=== PATIENT | male | born 1990 | race Caucasian/White ===

== ENCOUNTER 2018-09-02 00:55 | Emergency (ER) | payer BC ==
[~2018-09-02] VITALS: Ht 177.8 cm; Wt 74.8 kg
[2018-09-02] MEDS ORDERED: PANTOPRAZOLE 40 MG 10ML VIAL IV STA (01:16)
[2018-09-02] MEDS ORDERED: MORPHINE SULFATE 2 MG/ML SYR IV STA (01:16)
[2018-09-02] MEDS ORDERED: ONDANSETRON HCL INJ 2 MG/ML VIAL IV STA (01:16)
[2018-09-02] MEDS ORDERED: CIPROFLOXACIN500 MG PO (01:22)
[2018-09-02] MEDS ORDERED: SUCRALFATE1 GM PO (01:22)
[2018-09-02] MEDS ORDERED: ONDANSETRON HCL4 MG PO (01:22)
[2018-09-02] MEDS ORDERED: PROMETHAZINE HC25 M1 PO (01:22)
[2018-09-02] MEDS ORDERED: RANITIDINE HCL150 MG PO (01:22)
[2018-09-02] MEDS ORDERED: NEXIUM40 MG PO (01:22)
[2018-09-02] MEDS ORDERED: HYOSCYAMINE0.125 M1 PO (01:22)
[2018-09-02 01:28] LABS: BASOPHILS % 0.3 % (0.0-1.0); EOSINOPHILS # (AUTO) 0.1 (0.0-0.4); EOSINOPHILS % 1.4 % (0.0-6.0); HEMATOCRIT 45.3 % (38.2-49.6); HEMOGLOBIN 15.8 g/dL (14.0-18.0); LYMPHOCYTES # (AUTO) 1.7 (1.0-3.2); LYMPHOCYTES % 29.8 % (18.0-39.1); MEAN CORPUSCULAR HEMOGLOBIN 30.1 pg (28-32); MEAN CORPUSCULAR HGB CONC 34.9 g/dL (31-35); MEAN CORPUSCULAR VOLUME 86.3 fL (81-99); MONOCYTES # (AUTO) 0.4 (0.2-0.8); MONOCYTES % 6.9 % (4.4-11.3); NEUTROPHILS # (AUTO) 3.6 (2.1-6.9); NEUTROPHILS % 61.6 % (38.7-80.0); PLATELET COUNT 316 x10e3/uL (140-360); RED BLOOD COUNT 5.25 x10e6/uL (4.3-5.7); RED CELL DISTRIBUTION WIDTH 11.7 % (11.7-14.4)
[2018-09-02] MEDS ORDERED: SODIUM CHLORIDE 0.9% 1000ML 1,000 ML IV SCH (01:30)
[2018-09-02 01:32] LABS: CLARITY,URINE CLEAR (CLEAR); COLOR,URINE YELLOW (YELLOW)
[2018-09-02 01:33] LABS: BILIRUBIN,URINE NEGATIVE (NEGATIVE); KETONES,URINE NEGATIVE (NEGATIVE); LEUKOCYTE ESTERASE ,URINE NEGATIVE (NEGATIVE); NITRITE,URINE NEGATIVE (NEGATIVE); PROTEIN,URINE DIPSTICK NEGATIVE (NEGATIVE); RBC,URINE 0-5 /HPF (0-5); URINE UROBILINOGEN 0.2 mg/dL (0.2 - 1); WBC,URINE (MAN) 0-5 /HPF (0-5)
[2018-09-02 01:51] LABS: ALANINE AMINOTRANSFERASE 11 IU/L (0-55); ALBUMIN 4.1 g/dL (3.5-5.0); ALBUMIN/GLOBULIN RATIO 1.4 (0.8-2.0); ALKALINE PHOSPHATASE 68 IU/L (40-150); AMYLASE 42 U/L (25-125); ANION GAP 11.7 mmol/L (8-16); BLOOD UREA NITROGEN 11 mg/dL (7-26); BUN/CREATININE RATIO 9 (6-25); CALCIUM 9.3 mg/dL (8.4-10.2); CARBON DIOXIDE 27 mmol/L (22-29); CHLORIDE 107 mmol/L (98-107); CREATININE, SERUM 1.28 mg/dL (0.72-1.25); EST GLOMERULAR FILTRATION RATE > 60 ML/MIN (60-); GLUCOSE 97 mg/dL (74-118); LIPASE 26 U/L (8-78); POTASSIUM 3.7 mmol/L (3.5-5.1); SODIUM 142 mmol/L (136-145)
--- NOTE | 2018-09-02 02:52 | Diagnostic Imaging Report ---
EXAM: US GALLBLADDER DATE: 09/02/2018 12:00 AM INDICATION: Right upper quadrant pain, COMPARISON: None TECHNIQUE: Transverse and longitudinal cabrales scale and color doppler sonographic images of the right upper abdomen were obtained. FINDINGS: Evaluation is degraded due to excessive overlying bowel gas. LIVER 14.2 cm in the right midclavicular line. Normal echogenicity, normal contour. Hyperechoic gently lobular lesion in the right liver measures 1.1 x 1.1 x 1.1 cm. GALLBLADDER Slightly contracted and obscured by overlying bowel gas. No stones, sludge, wall-thickening or pericholecystic fluid. Negative sonographic Wolff's sign. BILE DUCTS No intra nor extra-hepatic biliary dilation. Common bile duct measures 0.5 cm PANCREAS: Obscured by overlying bowel gas pattern. Visualized portions are normal. RIGHT KIDNEY: 9.9 cm Echogenicity: Normal Collecting System: No hydronephrosis Stones: None Cyst/Mass: None VESSELS: Aorta: Poorly visualized due to overlying bowel gas Inferior Vena Cava: Poorly visualized due to overlying bowel gas Main Portal Vein: 0.8 cm, normal size with hepatopetal flow. FREE FLUID: None IMPRESSION: 1. No cholelithiasis or evidence of acute cholecystitis. 2. A1.1 cm hyperechoic right liver lesion, statistically benign such as a hemangioma in the absence of known liver disease. Consider nonemergent short-term follow-up MRI for characterization if clinically warranted. Signed by: Dr Lisbet Hernandez MD on 09/02/2018 2:48 AM
[2018-09-07] MEDS ORDERED: ZOFRAN ODT4 MG PO (13:08)
[2018-09-07] MEDS ORDERED: PANTOPRAZOLE SO40 MG PO (13:08)
[2018-09-07] MEDS ORDERED: LEVSIN0.125 MG PO (13:08)
[2018-10-09] MEDS ORDERED: NEXIUM40 MG (11:16)
== END 2018-09-02 03:45 | disposition home or self-care (01) ==
LOC: ER 00:55
DX: R10.11 Right upper quadrant pain (principal); R10.13 Epigastric pain; K29.50 Unspecified chronic gastritis without bleeding
CPT/HCPCS: 36415; 76705; 80053; 81001; 82150; 83605; 83690; 85025; 99284; J2270; J2405; J7030

== ENCOUNTER → 2018-09-10 | Day surgery (SDC) | payer BC ==
[~2018-09-10] MED LIST: CIPROFLOXACIN500 MG PO; FENTANYL CITRATE/PF 100MCG/2 ML INJ ONE; HYOSCYAMINE0.125 M1 PO; LEVSIN0.125 MG PO; LIDOCAINE HCL 2% LOCAL INJ 5 ML SDV VIAL INJ ONE; MIDAZOLAM HCL 2 MG/2 ML VIAL ONE; NEXIUM40 MG; NEXIUM40 MG PO; ONDANSETRON HCL4 MG PO; PANTOPRAZOLE SO40 MG PO; PROMETHAZINE HC25 M1 PO; PROPOFOL IV EMULSION 10 MG/ML 50 ML VIAL ONE; RANITIDINE HCL150 MG PO; SUCRALFATE1 GM PO; ZOFRAN ODT4 MG PO
--- OUTSIDE RECORDS SUMMARY | 2018-09-10 12:39 | XMS REPORT ---
Author Author [facility] Address Unknown Phone Unavailable Care Team Providers Care Sanitation Associate Name Role Phone Johan RUTLEDGE Unavailable Unavailable Problems This patient has no known problems. Allergies, Adverse Reactions, Alerts This patient has no known allergies or adverse reactions. Medications This patient has no known medications. Results Test Description Test Time Test Comments Text Results Atomic Results Result Comments US GALLBLADDER 2018-09-02 02:45:00 [place] [address] Patient Name: SWAPNA DUKE MR #: [id number] : 1990 Age/Sex: 28/M Req #: [id number] Adm Physician: Ordered by: RADHA RUTLEDGE MD Report #: [id number] Location: ER Room/Bed: Procedure: [id number] US/US GALLBLADDER Exam Date: 09/02/18 Exam Time: 0200 REPORT STATUS: Signed EXAM: US GALLBLADDER DATE: 09/02/2018 12:00 AM IND ICATION: Right upper quadrant pain, COMPARISON: None TECHNIQUE: Transverse and longitudinal cabrales scale and color doppler sonographic images of the right upper abdomen were obtained. FINDINGS: Evaluation is degraded due to excessive overlying bowel gas. LIVER 14.2 cm in the right midclavicular line. Normal echogenicity, normal contour. Hyperechoic gently lobular lesion in the right liver measures 1.1 x 1.1 x 1.1 cm. GALLBLADDER Slightly contracted and obscured by overlying bowel gas. No stones, sludge, wall-thickening or pericholecystic fluid. Negative son ographic Wolff's sign. BILE DUCTS No intra nor extra-hepatic biliary dilation. Common bile duct measures 0.5 cm PANCREAS: Obscured by overlying bowel gas pattern. Visualized portions are normal. RIGHT KIDNEY: 9.9 cm Echogenicity: Normal Collecting System: No hydronephrosis Stones: None Cyst/Mass: None VESSELS: Aorta: Poorly visualized due to overlying bowel gas Inferior Vena Cava: Poorly visualized due to overlying bowel gas Main Portal Vein: 0.8 cm, normal size with hepatopetal flow. FREE FLUID: None IMPRESSION: 1. No cholelithiasis or evidence of acute cholecystitis. 2. A1.1 cm hyperechoic right liver lesion, statistically benign such as a hemangioma in the absence of known liver disease. Consider nonemergent short-term follow-up MRI for characterization if clinically warranted. Signed by: Dr Yrn Hernandez MD on 09/02/2018 2:48 AM Dictated By: YRN HERNANDEZ MD 7 Transcribed By: POLLO on 09/02/18247 COPY TO: RADHA RUTLEDGE MD
[2018-09-10 14:58] LABS: WBC,FECAL (FECAL LACTOFERRIN) NEGATIVE (NEGATIVE)
--- NOTE | 2018-09-10 14:58 | Operative Report ---
DATE OF PROCEDURE: September 10, 2018 REFERRING PHYSICIAN: Dr. Fei Wilcox. PROCEDURES PERFORMED: 1. Esophagogastroduodenoscopy with biopsies. 2. Colonoscopy with biopsies. INDICATIONS FOR ESOPHAGOGASTRODUODENOSCOPY: Epigastric pain, nausea and vomiting. INDICATIONS FOR COLONOSCOPY: Diarrhea and weight loss. History of bright red blood per rectum. MEDICATION: Patient was done under MAC. Please see anesthesiologist's note. PROCEDURE: With the patient in the left lateral decubitus position, the flexible fiberoptic Olympus gastroscope was introduced into the esophagus under direct visualization without any difficulty. There was some patchy erythema noted in the distal esophagus. There was a minute nodule noted at the GE junction, and that was biopsied. The scope was then advanced with ease into the stomach, traversing a small hiatal hernia. Mucosa overlying the antrum and the body revealed some patchy erythema and mild to moderate edema, and biopsies were obtained and sent to stain for H. pylori. Pylorus appeared to be of normal contour and shape, was intubated with ease, and the scope was advanced all the way to the 2nd portion of the duodenum. Biopsies were obtained from the proximal 2nd portion to rule out sprue. Mucosa overlying the duodenal bulb appeared to be within normal limits. The scope was then withdrawn back into the stomach and retroflexed, and the mucosa overlying the fundus and the cardia appeared to be within normal limits. The scope was then straightened out. It was subsequently withdrawn. Patient tolerated the procedure well. IMPRESSION: 1. Distal esophagitis. 2. Minute nodule gastroesophageal junction biopsied. 3. Small sliding hiatal hernia. 4. Gastritis biopsied. Biopsies sent to stain for H. pylori. 5. Rule out sprue. PLAN: Follow up histology. Initiate Protonix 40 mg 1 p.o. q.a.m. a.c. Patient was then turned around and after adequate lubrication of the anal canal, a flexible fiberoptic Olympus colonoscope was inserted into the rectum with ease and advanced all the way to the cecum. The ileocecal valve was intubated, and the scope was advanced into the terminal ileum. Biopsies were obtained. The scope was then withdrawn back into the colon, and it then withdrawn slowly. The mucosa overlying the cecum, ascending and the transverse grossly appeared to be within normal limits. Mild patchy inflammatory changes were noted in the left colon as well as the rectum, and random biopsies were obtained. The scope was then retroflexed into the distal rectum and small internal hemorrhoids were noted, none of which was actively bleeding. The scope was then straightened out. It was subsequently withdrawn after securing an adequate stool specimen that was sent for the appropriate stool studies. Patient tolerated procedure well. IMPRESSION: 1. Mild patchy left-sided colitis. 2. Proctitis, mild. Biopsies obtained. 3. Internal hemorrhoids, none actively bleeding. PLAN: Follow up histology. Follow up stool studies. Initiate VSL#3 one p.o. daily and Bentyl 10 mg 1 p.o. t.i.d. Job#: [id number] EV cc:FEI WILCOX MD
[2018-09-10 15:05] VITALS: BP 104/62
[2018-09-11 09:33] LABS: C DIFFICILE TOXIN A&B AMP PROB NEGATIVE (NEGATIVE)
== END | disposition home or self-care (01) ==
LOC: OR 12:37
PROVIDERS: ATTEND Internal Medicine Gastroenterology
DX: K29.70 Gastritis, unspecified, without bleeding (principal); K20.9 Esophagitis, unspecified; K22.8 Other specified diseases of esophagus; K44.9 Diaphragmatic hernia without obstruction or gangrene; K51.50 Left sided colitis without complications; K62.89 Other specified diseases of anus and rectum; K64.8 Other hemorrhoids; Z88.0 Allergy status to penicillin
CPT/HCPCS: 43239; 45380; 83630; 83993; 87045; 87177; 87328; 87493; J2001; J2250; 45378

== ENCOUNTER → 2018-10-12 | Day surgery (SDC) | payer BC ==
[2018-10-09 11:21] LABS: BASOPHILS % 0.6 % (0.0-1.0); EOSINOPHILS # (AUTO) 0.2 (0.0-0.4); EOSINOPHILS % 3.3 % (0.0-6.0); HEMATOCRIT 42.2 % (38.2-49.6); HEMOGLOBIN 14.4 g/dL (14.0-18.0); LYMPHOCYTES # (AUTO) 1.5 (1.0-3.2); LYMPHOCYTES % 31.1 % (18.0-39.1); MEAN CORPUSCULAR HEMOGLOBIN 29.8 pg (28-32); MEAN CORPUSCULAR HGB CONC 34.1 g/dL (31-35); MEAN CORPUSCULAR VOLUME 87.4 fL (81-99); MONOCYTES # (AUTO) 0.4 (0.2-0.8); MONOCYTES % 8.7 % (4.4-11.3); NEUTROPHILS # (AUTO) 2.7 (2.1-6.9); NEUTROPHILS % 56.1 % (38.7-80.0); PLATELET COUNT 283 x10e3/uL (140-360); RED BLOOD COUNT 4.83 x10e6/uL (4.3-5.7); RED CELL DISTRIBUTION WIDTH 11.9 % (11.7-14.4)
[2018-10-09 11:24] LABS: BILIRUBIN,URINE NEGATIVE (NEGATIVE); CLARITY,URINE CLEAR (CLEAR); COLOR,URINE YELLOW (YELLOW); KETONES,URINE NEGATIVE (NEGATIVE); LEUKOCYTE ESTERASE ,URINE NEGATIVE (NEGATIVE); NITRITE,URINE NEGATIVE (NEGATIVE); PROTEIN,URINE DIPSTICK NEGATIVE (NEGATIVE); URINE UROBILINOGEN 0.2 mg/dL (0.2 - 1)
[2018-10-09 11:48] LABS: ALANINE AMINOTRANSFERASE 12 IU/L (0-55); ALBUMIN/GLOBULIN RATIO 1.3 (0.8-2.0); ALKALINE PHOSPHATASE 64 IU/L (40-150); ANION GAP 13.1 mmol/L (8-16); BLOOD UREA NITROGEN 12 mg/dL (7-26); BUN/CREATININE RATIO 10 (6-25); CALCIUM 9.4 mg/dL (8.4-10.2); CARBON DIOXIDE 27 mmol/L (22-29); CHLORIDE 105 mmol/L (98-107); CREATININE, SERUM 1.23 mg/dL (0.72-1.25); EST GLOMERULAR FILTRATION RATE > 60 ML/MIN (60-); GLUCOSE 86 mg/dL (74-118); POTASSIUM 4.1 mmol/L (3.5-5.1); SODIUM 141 mmol/L (136-145)
[~2018-10-12] MED LIST changes: +BUPIVACAINE 0.25%/EPI 30ML SDV INJ ONE; +DEXAMETHASONE SOD PHOS INJ 4 MG/ML VIAL ONE; +GLYCOPYRROLATE INJ 1MG/ 5 ML SYR ONE; +HYDROMORPHONE 2MG/ML 2 MG/ML ML ONE; +KETOROLAC TROMETHAMINE 30 MG/ML VIAL ONE; +MORPHINE SULFATE INJ 4 MG/ML INJ ONE; +NEOSTIGMINE 5 MG/5ML SYR ONE; +ONDANSETRON HCL INJ 2 MG/ML VIAL ONE; +PROPOFOL IV EMULSION 10 MG/ML 20 ML VIAL ONE; -PROPOFOL IV EMULSION 10 MG/ML 50 ML VIAL ONE; +ROCURONIUM BROMIDE 10 MG/ML 5ML VIAL ONE; +SEVOFLURANE INHAL SOLN 250 ML PEN BTL ONE
--- NOTE | 2018-10-12 14:44 | Operative Report ---
DATE OF PROCEDURE: October 12, 2018 PREOPERATIVE DIAGNOSIS: Biliary dyskinesia. POSTOPERATIVE DIAGNOSIS: Biliary dyskinesia. OPERATION PERFORMED: Laparoscopic cholecystectomy. ASSISTANTS: Dr. Zafar Trujillo and FABY Sun. ANESTHESIA: General. COMPLICATIONS: None. ESTIMATED BLOOD LOSS: Minimal. DESCRIPTION OF PROCEDURE: With the patient lying in bed in the supine position under good general endotracheal anesthesia, the abdomen was prepped with Betadine solution and draped in the usual manner. A Veress needle was introduced into the umbilicus and pneumoperitoneum was established without any difficulty. An 11 mm trocar was placed into the umbilicus and a 10 mm video laparoscope was placed into the intraabdominal cavity. Under direct vision, three 5 mm trocars were placed in right subcostal region. Video laparoscopy at this point revealed a liver that appeared to be normal. There seemed to be a small cystic lesion in the right lobe. The gallbladder was totally covered up with adhesions. All of the adhesions to the gallbladder were then slowly and carefully taken down. The peritoneum overlying the neck of the gallbladder was then opened and the cystic duct was identified. The cystic duct was followed to its junction with the common duct. Cystic duct was then circumferentially dissected away from the common duct, doubly clipped and divided. The cystic artery was similarly doubly clipped and divided. The gallbladder was then slowly and carefully taken off the liver bed using the cautery scissors and perfect hemostasis was ascertained. The gallbladder was grasped through the umbilical port and removed without any difficulty. Video laparoscopy was then again carried out. The liver bed was found to perfectly dry. All of the excess fluid was aspirated. The pneumoperitoneum was evacuated and all the trocars were removed under direct vision. The midline fascia at the umbilicus was then closed with a [id number]-qo-ectiv of 0 Vicryl. All layers were infiltrated on the way out with solution 1/4 percent Marcaine. Subcutaneous tissue was approximated with 3-0 Vicryl and the skin was closed subcuticular 5-0 Vicryl. Benzoin, Steri-Strips and Band-Aids were applied. The sponge, lap and needle count was correct. The patient tolerated the procedure well and returned to the recovery room in stable condition. Job#: [id number]
[2018-10-12 15:45] VITALS: BP 117/85
== END | disposition home or self-care (01) ==
LOC: OR 09:12
PROVIDERS: ATTEND Surgery
DX: K81.1 Chronic cholecystitis (principal); K82.8 Other specified diseases of gallbladder; K21.9 Gastro-esophageal reflux disease without esophagitis; F41.9 Anxiety disorder, unspecified; Z01.812 Encounter for preprocedural laboratory examination; Z88.0 Allergy status to penicillin
CPT/HCPCS: 36415; 47562; 80053; 81003; 85025; 88304; C1766; J1100; J1170; J1885; J2001; J2250; J2270; J2405; J2704; J3490

== ENCOUNTER → 2019-12-13 | Outpatient (CLI) | payer BC, OTHER ==
[~2019-12-13] MED LIST changes: -BUPIVACAINE 0.25%/EPI 30ML SDV INJ ONE; -DEXAMETHASONE SOD PHOS INJ 4 MG/ML VIAL ONE; -FENTANYL CITRATE/PF 100MCG/2 ML INJ ONE; +GADOBENATE DIMEGLUMINE 1 ML IV ONE; -GLYCOPYRROLATE INJ 1MG/ 5 ML SYR ONE; -HYDROMORPHONE 2MG/ML 2 MG/ML ML ONE; +IOPAMIDOL 300 MG/ML 15ML VIAL IT ONE; -KETOROLAC TROMETHAMINE 30 MG/ML VIAL ONE; +LIDOCAINE HCL 1% LOCAL INJ 20 ML VIAL ONE; -LIDOCAINE HCL 2% LOCAL INJ 5 ML SDV VIAL INJ ONE; -MIDAZOLAM HCL 2 MG/2 ML VIAL ONE; -MORPHINE SULFATE INJ 4 MG/ML INJ ONE; -NEOSTIGMINE 5 MG/5ML SYR ONE; -ONDANSETRON HCL INJ 2 MG/ML VIAL ONE; -PROPOFOL IV EMULSION 10 MG/ML 20 ML VIAL ONE; -ROCURONIUM BROMIDE 10 MG/ML 5ML VIAL ONE; -SEVOFLURANE INHAL SOLN 250 ML PEN BTL ONE
--- NOTE | 2019-12-13 11:16 | Diagnostic Imaging Report ---
Right shoulder arthrogram. History: Right shoulder pain. Arthrogram requested for intra-articular injection of contrast for MRI. Compliance Specialist: Dr. Bettencourt. Contrast: 0.1 cc of gadolinium and 10 cc of Isovue 300, 5 cc normal saline. Medication: 5 cc of 1% Lidocaine without epinephrine. EBL: < 1 ml. Specimen: None. Fluoro time: 0.2 min. Dose: 1.2 mGy (KYLE) Technique: After informed consent was obtained, the patient's right shoulder was prepped and draped in a sterile fashion. The skin was anesthetized with lidocaine. Using fluoroscopic guidance, a 20-gauge spinal needle was advanced into the right glenohumeral joint space. The contrast mixture was injected. The needle was removed and the patient was sent to MRI for scanning. The patient tolerated procedure well without evidence of complication. IMPRESSION: Successful right shoulder arthrogram for MRI. Signed by: Angel Bettencourt on 12/13/2019 11:13 AM
--- NOTE | 2019-12-13 11:43 | Diagnostic Imaging Report ---
TECHNIQUE: Magnetic resonance imaging of the RIGHT SHOULDER was performed after intra-articular injection of contrast. COMPARISON: None available. HISTORY: Pain FINDINGS: : MUSCLES AND TENDONS: Rotator Cuff: Tendons: Supraspinatus: Intact Infraspinatus: Intact Teres Minor: Intact Subscapularis: Intact . Muscles: No focal muscle atrophy. Biceps Tendon: The long head of the biceps tendon is intact and within the intertubercular groove. GLENOHUMERAL JOINT: Glenoid Labrum: Nondisplaced tear involving the superior and posterior glenoid labrum (series 4 image 13). Articular Cartilage: No focal defect. AC JOINT AND ACROMION: No hypertrophic degenerative changes of the acromioclavicular joint. The acromion is unremarkable. Bone: No focal or infiltrative bone marrow replacing abnormality. No acute fracture. Soft Tissues: Otherwise, the soft tissues appear unremarkable. IMPRESSION: Intact rotator cuff Slap tear of the superoposterior labrum. Signed by: Dr. Bill Oliva M.D. on 12/13/2019 11:40 AM
== END ==
LOC: DX 08:03
PROVIDERS: ATTEND Specialist
DX: S43.431A Superior glenoid labrum lesion of right shoulder, initial encounter (principal)
CPT/HCPCS: 23350; 73222; 77002; A9577; J2001; Q9967

== ENCOUNTER → 2019-12-24 | Day surgery (SDC) | payer BC, OTHER ==
[~2019-12-24] MED LIST changes: +ACETAMINOPHEN 1000 MG/100 ML IV ONE; +BUPIVACAINE 0.25% 30ML SDV INJ ONE; +CLINDAMYCIN 600MG / 50ML 50 ML IV ONE; +DEXAMETHASONE SOD PHOS INJ 4 MG/ML VIAL ONE; +EPINEPHRINE 1 MG/ML 30ML VIAL ONE; +FENTANYL CITRATE/PF 100MCG/2 ML INJ ONE; -GADOBENATE DIMEGLUMINE 1 ML IV ONE; +GLYCOPYRROLATE INJ 0.2 MG/ML VIAL ONE; -IOPAMIDOL 300 MG/ML 15ML VIAL IT ONE; +KETOROLAC TROMETHAMINE 30 MG/ML VIAL ONE; -LIDOCAINE HCL 1% LOCAL INJ 20 ML VIAL ONE; +LIDOCAINE HCL 2% LOCAL 20 ML VIAL ONE; +LIDOCAINE HCL 2% LOCAL INJ 5 ML SDV VIAL INJ ONE; +MEPERIDINE HCL INJ 25 MG/ML VIAL ONE; +MIDAZOLAM HCL 2 MG/2 ML VIAL ONE; +NEOSTIGMINE 1 MG/ML 10ML VIAL ONE; +ONDANSETRON HCL INJ 2MG/ML 2ML 2 MG/ML VIAL ONE; +PROPOFOL IV EMULSION 10 MG/ML 20 ML VIAL ONE; +ROCURONIUM BROMIDE 10 MG/ML 5ML VIAL ONE; +SEVOFLURANE INHAL SOLN 250 ML PEN BTL ONE; +ULTRAM50 MG PO
--- NOTE | 2019-12-24 07:15 | NUR ---
SPIRITUAL CARE - Pre-Surgery Assessment: Pt in bed. Pt's grandmother at bedside. Pt reported supportive attention from family and friends. Intervention: I provided pastoral presence, hospitality, and sympathetic listening. I acquainted pt with availability of heat treater apprentice while hospitalized. Outcome: Pt expressed appreciation for visit. No need for follow up indicated at this time. DERRELL Lopezlain Spiritual Care Department O: [phone] Pager: [phone] ([phone] number calling from)
[2019-12-24 11:25] VITALS: BP 112/85
--- NOTE | 2019-12-24 17:03 | Operative Report ---
DATE OF PROCEDURE: 12/24/2019 SURGEON: Fei Sheriff MD DIRECTOR MEDICAL SURGICAL: Neal Miles, certified PA. PREOPERATIVE DIAGNOSIS: Right shoulder SLAP tear. POSTOPERATIVE DIAGNOSIS: Right shoulder SLAP tear. PROCEDURE: Right shoulder arthroscopy, SLAP repair. INDICATIONS: The patient is a 29-year-old gentleman with a long history of right shoulder pain. Clinic exam and MRI findings were consistent with a SLAP tear. The findings and options have been discussed. The patient would like to proceed with a surgical repair. The risks and benefits have been discussed. All of his questions have been answered. He states he understands and wishes to proceed. PROCEDURE IN DETAIL: The patient was brought to the operating room and placed under general anesthetic. He received a regional block and prophylactic antibiotics in the holding area. He was positioned in the beach chair position on the shoulder table. His right upper extremity was prepped and draped in a sterile manner. A preoperative time-out was performed. The extremity was examined under anesthesia. There was some mild anterior subluxation, but no solitario dislocation. He had full range of motion. Standard posterior arthroscopy portal was established. The shoulder was insufflated with sterile saline and systematically inspected. The glenohumeral surfaces, rotator cuff insertion, and the integrity of the biceps tendon all appeared normal. An anterior working portal was established in the rotator interval. The labrum was probed. There was a subacute detachment of the superior labrum extending down into about the 3 o'clock position. This was probed and photographed. A 3rd portal was established with a mild tendinous junction of the rotator cuff. A mechanical shaver was used to gently decorticate the anterior and superior labrum. An Arthrex SwiveLock labral repair system was used. Three different FiberWire stitches were passed through healthy portions of the labrum. The middle glenohumeral ligament was slightly advanced and tightened. Three different bioabsorbable suture anchors were used to anchor the detached labrum down to bleeding cancellous bone. The repair was re-probed. There was nice security of the repair. The posterior labrum was inspected through the anterior portal. There was a slight, but stable tear. The arthroscopic instruments were removed. The portal incisions were closed with nylon stitches. A sterile bandage and an UltraSling were applied. The patient was extubated and transported to the recovery room in stable condition. There was no blood loss and all needle and sponge counts were correct. Fei Sheriff MD DR/EDDIE /[id number]
== END | disposition home or self-care (01) ==
LOC: OR 06:18
PROVIDERS: ATTEND Specialist
DX: S43.431A Superior glenoid labrum lesion of right shoulder, initial encounter (principal); K21.9 Gastro-esophageal reflux disease without esophagitis; X58.XXXA Exposure to other specified factors, initial encounter; Z88.0 Allergy status to penicillin
CPT/HCPCS: 29807; C1713; J0131; J1100; J1885; J2001 ×2; J2175; J2250; J2405; J2704; J2710; J3010